=== PATIENT | female | born 1970 | race Caucasian/White ===

== ENCOUNTER 2023-04-17 07:20 | Day surgery (SDC) | payer MEDICAID ==
[~2023-04-17] VITALS: Ht 172.7 cm; Wt 170.4 kg
[~2023-04-17 07:20] MED LIST: BACDS PO; CLIN150C2 PO; CLON-527 PO; CLOT15CR73 TP; CYCL-394 PO; DULO-31 PO; ESOM40CA PO; FERR325T28 PO; FURO40TA4 PO; GABA-330 PO; HUM7525 SQ; LISI-222 PO; METF500T PO; NOR5T PO; PER10325T PO; POTA-207 PO; XOP1.25IN NEB; ZOLP12.531 PO
[2023-04-17] MEDS ORDERED: fentaNYL/PF 50MCG/1 ML 2ML syringe ONE (07:59)
[2023-04-17] MEDS ORDERED: MIDAZolam 1 MG/ML 5ML VIAL ONE ×2 (07:59)
[2023-04-17] MEDS ORDERED: diphenhydrAMINE 50 mg/ml inj ONE (07:59)
[2023-04-17 08:25] VITALS: BP 173/98; PULSE 75; RESP 20
[2023-04-17 09:03] VITALS: BP 144/72; PULSE 55; RESP 17; O2SAT 95
[2023-04-17 09:13] VITALS: BP 125/84; PULSE 62; RESP 18; O2SAT 99
[2023-04-17 09:23] VITALS: BP 135/81; PULSE 74; RESP 20; O2SAT 98
[2023-04-17 09:33] VITALS: BP 124/82; PULSE 62; RESP 16; O2SAT 95
== END 2023-04-17 09:38 | disposition home or self-care (01) ==
LOC: GI LAB 07:20
PROVIDERS: ATTEND Internal Medicine Gastroenterology
DX: R19.7 Diarrhea, unspecified (principal); I11.0 Hypertensive heart disease with heart failure; I50.9 Heart failure, unspecified; E11.9 Type 2 diabetes mellitus without complications; J44.9 Chronic obstructive pulmonary disease, unspecified; K21.9 Gastro-esophageal reflux disease without esophagitis; Z99.81 Dependence on supplemental oxygen; E66.9 Obesity, unspecified; Z68.43 Body mass index [BMI] 50.0-59.9, adult; F12.90 Cannabis use, unspecified, uncomplicated; Z87.891 Personal history of nicotine dependence; Z88.5 Allergy status to narcotic agent; Z88.8 Allergy status to other drugs, medicaments and biological substances; Z79.899 Other long term (current) drug therapy; Z80.0 Family history of malignant neoplasm of digestive organs
CPT/HCPCS: 45378; 99152; J2250; J3010; J7030; Z7512; A4620; J1200